=== PATIENT | female | born 1990 | race Caucasian/White ===

== ENCOUNTER → 2016-09-21 | Outpatient (CLI) | payer BC, MEDICAID ==
[~2016-09-21] MED LIST: IBUP80TA PO; PERCOCET PO; VITAPRTA PO
--- NOTE | 2016-09-21 14:11 | REP ---
OBSTETRIC SONOGRAPHY: HISTORY: Supervision of for anatomy. FINDINGS: Scanning through the gravid uterus demonstrates a viable single intrauterine gestation in a breech lie. motion is observed and heart rate is recorder 150 beats per minute. A anterior grade 0 placenta is seen without evidence of previa or abruption. Amniotic fluid is subjectively normal. Closed cervical length is 4.9 cm viewed transabdominally. No extrauterine abnormality is observed. No anomaly is seen. The following anatomic structures are less than optimally seen due to position: Face and profile, four-chamber heart and left ventricular outflow tract view, and spine. The following additional anatomic structures are identified and felt to be sonographically unremarkable: cranium, choroid plexus, cavum, cerebellum and posterior fossa, lungs, right ventricular outflow tract view, diaphragm, left-sided stomach, abdominal wall cord insertion, three-vessel umbilical cord, kidneys and bladder, upper and lower extremities. Biometry Chart: BPD 4.5 cm = 19 weeks 5 days HC 16.7 cm = 19 weeks 3 days AC 14.6 cm = 19 weeks 6 days FL 3.0 cm = 19 weeks 1 day HL 3.0 cm = 20 weeks 0 days CD 1.9 cm = 18 weeks 6 days HC/AC ratio normal 1.15. Cephalic index normal 0.75. Estimated weight 297 grams, 0 pounds 10 ounces, 40th percentile for 19 weeks 5 days. IMPRESSION: Viable single intrauterine gestation at 19 weeks 3 days by today's composite criteria. NONI by today's sonography February 12, 2017. anatomic survey less than complete as above. Signed by Rip Ramirez MD 09/21/2016 04:43 P
== END ==
LOC: M RAD 11:07
PROVIDERS: ATTEND Obstetrics & Gynecology
DX: Z34.82 Encounter for supervision of other normal pregnancy, second trimester (principal); O32.1XX0 Maternal care for breech presentation, not applicable or unspecified; Z3A.19 19 weeks gestation of pregnancy

== ENCOUNTER → 2016-10-18 | Outpatient (CLI) | payer OTHER, MEDICAID ==
--- NOTE | 2016-10-18 11:08 | REP ---
Clinical: Anatomical evaluation. Comparison: 09/21/2016 . Findings: Examination demonstrates a single live intrauterine in transverse (head to the maternal right side) presentation. motion is identified by technologist. Placenta is noted anteriorly and grade zero without evidence for placenta previa or abruption. Amniotic fluid volume is normal. Cervix measures 3.7 cm in length and appears closed. No evidence for nuchal cord. Gestational age by LMP 23 weeks 4 days with NONI 02/10/2017 . Gestational age by current measurements 23 weeks 5 days with NONI 02/09/2017 . FHR equals 144 beats per minute. Estimated weight 612 grams ( 45th percentile). Anatomical assessment demonstrates normal structures including cranium, choroid plexus, cavum, cerebellum/posterior fossa, facial features, lungs, four-chamber heart/ventricular outflow tracts, diaphragm, stomach, cord insertion/three-vessel cord, kidneys/bladder, spine, and extremities. Limited evaluation of the facial profile. Impression: 1. Single live intrauterine in transverse lie demonstrating appropriate interval growth. 2. With the exception of facial profile views, anatomical assessment is complete and normal. Signed by Pete Perez MD 10/18/2016 11:00 A
== END ==
LOC: M RAD 09:54
PROVIDERS: ATTEND Specialist
DX: Z34.82 Encounter for supervision of other normal pregnancy, second trimester (principal); Z3A.23 23 weeks gestation of pregnancy

== ENCOUNTER → 2016-11-17 | Outpatient (CLI) | payer OTHER, MEDICAID ==
[2016-11-17 15:08] LABS: MEAN CORPUSCULAR HEMOGLOBIN 30.2 pg (27.0-33.0); MEAN CORPUSCULAR HGB CONC 32.9 g/dl (32.0-36.5); MEAN CORPUSCULAR VOLUME 91.8 fl (80.0-96.0); RED CELL DISTRIBUTION WIDTH 13.6 % (11.5-14.5); WHITE BLOOD COUNT 12.3 K/mm3 (4.0-10.0)
== END ==
LOC: M LAB 13:22
PROVIDERS: ATTEND Obstetrics & Gynecology
DX: Z34.82 Encounter for supervision of other normal pregnancy, second trimester (principal)

== ENCOUNTER → 2017-01-11 | Outpatient (REF) | payer OTHER, MEDICAID | LOC: M LAB REF 17:21 | PROVIDERS: ATTEND Specialist | DX: Z34.83 Encounter for supervision of other normal pregnancy, third trimester (principal) ==

== ENCOUNTER → 2017-01-13 | Outpatient (CLI) | payer OTHER, MEDICAID ==
--- NOTE | 2017-01-14 07:41 | REP ---
Clinical: growth evaluation. Comparison: 12/22/2016 . Findings: Examination demonstrates a single live intrauterine in cephalic presentation. motion is identified by technologist. Placenta is noted anteriorly and grade one without evidence for placenta previa or abruption. Amniotic fluid volume is normal. No evidence for nuchal cord. Gestational age by LMP 36 weeks 0 days with NONI 02/10/2017 . Gestational age by current measurements 48-lllq-9-day with NONI 02/28/2017 . FHR equals 145 beats per minute. BPD 8.8 cm 35 weeks 5 days HC 31.9 cm 35 weeks 6 days AC 32.0 cm 35 weeks 6 days FL 7.1 cm 36 weeks 2 days HL 6.3 cm 36 weeks 2 days HC/AC ratio 1.00 Estimated weight 2815 grams ( 50th percentile). Amniotic fluid index equals 13.0 cm (7.7 - 24.9). Impression: Single live advanced gestation in cephalic presentation demonstrating appropriate interval growth. Estimated weight and amniotic fluid volume are normal. Signed by Pete Perez MD 01/14/2017 07:33 A
== END ==
LOC: M RAD 14:24
PROVIDERS: ATTEND Specialist
DX: O36.63X2 Maternal care for excessive fetal growth, third trimester, fetus 2 (principal); Z3A.36 36 weeks gestation of pregnancy

== ENCOUNTER 2017-02-03 05:39 | Inpatient (IN) | payer OTHER, MEDICAID ==
[~2017-02-03] VITALS: Ht 182.9 cm; Wt 130.0 kg
[2017-02-03] VITALS (8 sets, daily range): BP systolic 110–135; BP diastolic 61–83
[~2017-02-03 05:39] MED LIST changes: +PRENTAB9 PO
[2017-02-03 06:38] LABS: MEAN CORPUSCULAR HEMOGLOBIN 30.7 pg (27.0-33.0); MEAN CORPUSCULAR HGB CONC 34.5 g/dl (32.0-36.5); MEAN CORPUSCULAR VOLUME 89.1 fl (80.0-96.0); RED CELL DISTRIBUTION WIDTH 14.1 % (11.5-14.5)
[2017-02-03] MEDS ORDERED: LR 1,000 ML IV ONE (06:45)
[2017-02-03] MEDS ORDERED: LR 1,000 ML IV SCH (06:45)
[2017-02-03] MEDS ORDERED: BICITRA 30ML SOLN UDC PO ONE (06:45)
[2017-02-03] MEDS ORDERED: ONDANSETRON 4MG/2ML VIAL (J2405) IV PRN ×3 (08:09→10:00)
[2017-02-03] MEDS ORDERED: NALBUPHINE HCL 10 MG/ML AMP (J2300) IV PRN ×2 (08:09→10:00)
[2017-02-03] MEDS ORDERED: NALOXONE INJ 0.4 MG/1 ML VIAL (J2310) IV PRN ×2 (08:09)
[2017-02-03] MEDS ORDERED: METOCLOPRAMIDE INJ 10MG/2ML VIAL (J2765) IV PRN (08:09)
[2017-02-03] MEDS ORDERED: ePHEDrine SULFATE 25 MG/5 ML(5MG/ML) SYRINGE As Ordered ONE ×2 (08:18→08:37)
[2017-02-03] MEDS ORDERED: OXYTOCIN INJ 10 UNITS/ML VIAL (J2590) As Ordered ONE (08:18)
[2017-02-03] MEDS ORDERED: MORPHINE PRES-FREE INJ 10 MG/10 ML VIAL (J2274) As Ordered ONE (08:18)
[2017-02-03] MEDS ORDERED: PHENYLephrine HCL 500 MCG/5 ML (100MCG/ML) SYRINGE (J2370) As Ordered ONE ×2 (08:18→08:37)
[2017-02-03] MEDS ORDERED: ONDANSETRON 4MG/2ML VIAL (J2405) As Ordered ONE (08:22)
[2017-02-03] MEDS ORDERED: KETOROLAC 60 MG/2 ML VIAL (J1885) As Ordered ONE (08:22)
[2017-02-03] MEDS: LR 1,000 ML IV SCH ×2 (09:37→17:37)
[2017-02-03] MEDS: OXYTOCIN DRIP 30 UNITS in APPROPRIATE DILUENT 1 EA IV SCH ×4 (09:37→21:37)
[2017-02-03] MEDS ORDERED: MEASLES,MUMPS,RUBELLA VACCINE INJ (MMR-II) (90707) SC SCH (09:45)
[2017-02-03] MEDS ORDERED: PROMETHAZINE 25 MG TAB PO PRN (09:45)
[2017-02-03] MEDS ORDERED: RHOGAM 300 MCG (1500 IU) INJ (J2790) IM SCH (09:45)
[2017-02-03] MEDS ORDERED: OXYC1TAB23 PO (09:49)
[2017-02-03] MEDS ORDERED: IBUP-1022 PO (09:50)
[2017-02-03] MEDS ORDERED: COLA100C5 PO (09:51)
[2017-02-03] MEDS ORDERED: MEPERIDINE INJ 25 MG/ML VIAL (J2175) IV PRN (10:00)
[2017-02-03] MEDS ORDERED: PERCOCET 5MG/325MG TAB PO PRN (10:00)
[2017-02-03] MEDS ORDERED: fentaNYL 100 MCG/2 ML INJECTION (J3010) IV PRN (10:00)
[2017-02-03] MEDS ORDERED: HYDROmorphone HCL 1 MG/ML SYRINGE (J1170) IV PRN (10:00)
[2017-02-03] MEDS: PERCOCET 5MG/325MG TAB PO PRN ×2 (12:09→17:58)
[2017-02-03] MEDS: KETOROLAC 30 MG/ML VIAL (J1885) IV SCH ×2 (15:17→21:01)
[2017-02-03] MEDS: DOCUSATE SODIUM 100 MG CAP PO SCH (21:00)
[2017-02-03] MEDS ORDERED: LACTATED RINGER'S 1000 ML IV ONE (22:15)
[2017-02-03] MEDS: SIMETHICONE 80 MG CHEW TAB PO PRN (22:46)
[2017-02-04] MEDS: PERCOCET 5MG/325MG TAB PO PRN ×4 (01:30→20:28)
[2017-02-04] MEDS: LR 1,000 ML IV SCH (01:37)
[2017-02-04] MEDS: OXYTOCIN DRIP 30 UNITS in APPROPRIATE DILUENT 1 EA IV SCH ×2 (01:37→05:37)
[2017-02-04 02:09] VITALS: BP 132/72
[2017-02-04] MEDS: KETOROLAC 30 MG/ML VIAL (J1885) IV SCH ×2 (03:23→08:42)
[2017-02-04 05:44] VITALS: BP 135/70
[2017-02-04] MEDS: SIMETHICONE 80 MG CHEW TAB PO PRN ×2 (06:44→20:41)
[2017-02-04 07:12] LABS: MEAN CORPUSCULAR HGB CONC 33.1 g/dl (32.0-36.5); MEAN CORPUSCULAR VOLUME 90.4 fl (80.0-96.0); RED CELL DISTRIBUTION WIDTH 14.6 % (11.5-14.5)
[2017-02-04] MEDS: PRENATAL VITAMINS CHEWABLE TABLET PO SCH (08:42)
[2017-02-04] MEDS: DOCUSATE SODIUM 100 MG CAP PO SCH ×2 (08:42→20:28)
[2017-02-04 10:35] VITALS: BP 111/55
[2017-02-04 14:45] VITALS: BP 119/64
[2017-02-04] MEDS: IBUPROFEN 800 MG TAB PO SCH (17:06)
[2017-02-04 18:25] VITALS: BP_SYST 127; BP_SYST 131; BP_DIAS 61; BP_DIAS 62
[2017-02-05] MEDS: PERCOCET 5MG/325MG TAB PO PRN ×3 (00:45→12:14)
[2017-02-05] MEDS: IBUPROFEN 800 MG TAB PO SCH ×2 (00:45→09:44)
[2017-02-05 05:35] VITALS: BP 127/71
[2017-02-05] MEDS: PRENATAL VITAMINS CHEWABLE TABLET PO SCH (09:44)
[2017-02-05] MEDS: DOCUSATE SODIUM 100 MG CAP PO SCH (09:44)
[2017-02-05] MEDS ORDERED: OXYC1TAB23 PO (11:13)
[2017-02-05] MEDS ORDERED: IBUP-1114 PO (11:13)
[2017-02-05] MEDS ORDERED: MYLI40DR PO (11:13)
== END 2017-02-05 12:30 | disposition home or self-care (01) | DRG 766 ==
LOC: M LDI 05:39 → M OBS 11:41
PROVIDERS: ADMIT Specialist; ATTEND Obstetrics & Gynecology
PROC: 10D00Z1 Extraction of Products of Conception, Low, Open Approach (ICD-10-PCS; principal; 2017-02-03 07:30)
DX: O34.211 Maternal care for low transverse scar from previous cesarean delivery (principal); O99.824 Streptococcus B carrier state complicating childbirth; Z3A.39 39 weeks gestation of pregnancy; O99.02 Anemia complicating childbirth; D64.9 Anemia, unspecified; Z37.0 Single live birth

== ENCOUNTER → 2019-04-23 | Outpatient (CLI) | payer BC, MEDICAID, OTHER ==
[~2019-04-23] MED LIST changes: +COLA100C5 PO; +IBUP-1022 PO; +IBUP-1114 PO; +MYLI40DR PO; +OXYC1TAB23 PO
--- NOTE | 2019-04-23 20:25 | REP ---
Obstetric ultrasound for anatomy: There is a single intrauterine gestation in a vertex presentation. There is movement and cardiac activity. The heart rate is 139 beats per minute. The placenta is posterior. There is no previa or abruptio. The placenta is grade zero. The amniotic fluid volume subjectively is normal. The cervix measures 4.2 cm length. Gestational age by today's ultrasound is 19 weeks 1 day/NONI 09/16/2019. Gestational age by LMP is 19 weeks 3 days/NONI 09/14/2019. weight is 279 grams/0 pounds, 9 ounces. This is the 39th percentile for 19 weeks 3 days. anatomy: The following anatomic structures are identified and are unremarkable: Cranium, choroid plexus, diaphragm, stomach, kidneys, bladder, spine, upper and lower extremities. Suboptimally demonstrated because of position are: Cavum septum pellucidum, cerebellum, facial features, lungs, four-chamber heart, cardiac right and left ventricular outflow tracts, cord insertion and three-vessel cord. A followup study dedicated to these structures might be considered. Electronically Signed by Apollo Ascencio MD 04/23/2019 08:16 P
== END ==
LOC: M RAD 18:07
PROVIDERS: ATTEND Obstetrics & Gynecology
DX: Z34.82 Encounter for supervision of other normal pregnancy, second trimester (principal); Z3A.19 19 weeks gestation of pregnancy

== ENCOUNTER → 2019-05-18 | Outpatient (CLI) | payer BC ==
--- NOTE | 2019-05-18 15:21 | REP ---
REASON: Followup anatomy. Prior examination suboptimally visualized four chamber heart and ventricular outflow tracts. Multiple ultrasonographic images of the gravid uterus shows a single living intrauterine gestation in the jones breech presentation. The fetus is slightly oblique, however, with a head to the maternal left position. Doppler interrogation of the heart shows a heart rate of 144 beats per minute. The placenta is posterior and overlying. The subjective amniotic fluid volume is within normal limits. The cervix measures 5 cm in length and is closed. anatomical features seen today as unremarkable are as follows: Thalami, cavum septum pellucidum, cerebellum, cisterna magna, cerebral ventricles, spine, kidneys, bladder, three vessel umbilical cord, cord insertion, stomach, and upper and lower extremities. Four chamber heart and ventricular outflow tracts again suboptimally seen today. upper lip was seen normally today. BPD 5.5 cm = 22 weeks 4 days HC 20.5 cm = 22 weeks 4 days AC 20.0 cm = 24 weeks 5 days FL 4.2 cm = 23 weeks 6 days The estimated weight is 653 grams which is at the 78th percentile for 23 weeks 0 day gestational age. IMPRESSION: Single living intrauterine gestation as described above with an estimated gestational age of 23 weeks 2 days via composite criteria and an estimated date of delivery 09/12/2019. No anomalies were seen today, however, I recommended a followup examination to confirm a four vessel heart and to better visualize the outflow tracts. Electronically Signed by Cruz Chung DO 05/18/2019 04:23 P
== END ==
LOC: M RAD 07:04
PROVIDERS: ATTEND Obstetrics & Gynecology
DX: Z34.82 Encounter for supervision of other normal pregnancy, second trimester (principal); Z3A.23 23 weeks gestation of pregnancy

== ENCOUNTER → 2019-06-08 | Outpatient (CLI) | payer BC ==
--- NOTE | 2019-06-08 19:10 | REP ---
Obstetric sonography: History: Supervision of followup anatomy and placental location. Findings: Scanning through the gravid uterus demonstrates a viable single intrauterine gestation in a cephalic lie. motion is observed. Heart rate is recorded at 124 beats per minute. A posterior grade zero placenta is seen without evidence of previa. The placental tip is 6.3 cm from the internal cervical os. Closed cervical length is measured transvaginally and transabdominally at 5.5 cm. No extrauterine abnormalities observed. There has been appropriate interval growth. No anomaly is seen. The following anatomic structures are identified today and felt to be sonographically unremarkable: cranium, cavum, face and profile, lungs, four-chamber heart with left and right ventricular outflow tract views, diaphragm, left-sided stomach, abdominal wall cord insertion, three-vessel cord, kidneys and bladder. Biometry chart: BPD 6.7 cm 26 weeks 6 days head circumference 23.7 cm 25 weeks 5 days abdominal circumference 22.1 cm 26 weeks 4 days femur length 5.0 cm 26 weeks 6 days humeral length 4.3 cm 26 weeks 0 days HC/AC ratio normal 1.07, cephalic index normal 0.80, estimated weight 958 grams, 2 pounds 1 ounce, 59th percentile for 26 weeks 0 days. Impression: Viable single intrauterine gestation 26 weeks 3 days by today's composite sonographic criteria. Expected gestational age estimate based on prior sonography is 25 weeks 5 days. NONI by prior sonography September 16, 2019. Electronically Signed by Rip Ramirez MD 06/08/2019 07:11 P
== END ==
LOC: M RAD 16:48
PROVIDERS: ATTEND Obstetrics & Gynecology
DX: Z34.82 Encounter for supervision of other normal pregnancy, second trimester (principal); Z3A.26 26 weeks gestation of pregnancy

== ENCOUNTER → 2019-06-16 | Outpatient (CLI) | payer BC ==
[2019-06-16 10:01] LABS: HEMATOCRIT 36.3 % (36.0-47.0); HEMOGLOBIN 11.7 g/dl (12.0-15.5); MEAN CORPUSCULAR HEMOGLOBIN 29.8 pg (27.0-33.0); MEAN CORPUSCULAR HGB CONC 32.2 g/dl (32.0-36.5); MEAN CORPUSCULAR VOLUME 92.6 fl (80.0-96.0); PLATELET COUNT, AUTOMATED 213 10^3/uL (150-450); RED BLOOD COUNT 3.92 10^6/uL (4.00-5.40); WHITE BLOOD COUNT 12.5 10^3/uL (4.0-10.0)
== END ==
LOC: M LAB 08:24
PROVIDERS: ATTEND Obstetrics & Gynecology
DX: Z34.82 Encounter for supervision of other normal pregnancy, second trimester (principal)

== ENCOUNTER → 2019-06-25 | Outpatient (REF) | payer BC ==
[2019-06-25 13:34] LABS: APPEARANCE, URINE CLOUDY (CLEAR); BACTERIA, URINE AUTO 1+ (NEGATIVE); BILIRUBIN, URINE AUTO NEGATIVE (NEGATIVE); BLOOD, URINE BLOOD 3+ (NEGATIVE); COLOR, URINE YELLOW (YELLOW); GLUCOSE, URINE (UA) AUTO 1+ mg/dL (NEGATIVE); KETONE, URINE AUTO NEGATIVE (NEGATIVE); LEUKOCYTE ESTERASE, URINE AUTO 3+ (NEGATIVE); MUCUS, URINE SMALL (NEGATIVE); NITRITE, URINE AUTO NEGATIVE (NEGATIVE); PROTEIN, URINE AUTO NEGATIVE (NEGATIVE); RBC, URINE AUTO 91 /HPF (0-3); SPECIFIC GRAVITY URINE AUTO 1.016 (1.002-1.035); SQUAMOUS EPITHELIAL CELL UR AU 4 /HPF (0-6); UROBILINOGEN, URINE AUTO 0.2 mg/dL (0.0-2.0); WBC, URINE AUTO TNTC /HPF (0-3)
== END ==
LOC: M SFHCPLAZ 13:15
PROVIDERS: ATTEND Obstetrics & Gynecology
DX: R30.0 Dysuria (principal)

== ENCOUNTER → 2019-08-17 | Outpatient (CLI) | payer BC ==
--- NOTE | 2019-08-17 10:12 | REP ---
Obstetric sonography: History: Supervision of growth study. Findings: Scanning through the gravid uterus demonstrates a viable single intrauterine gestation in a cephalic lie. motion is observed and heart rate is recorded at 162 beats per minute. A posterior fundal grade 1 to 2 placenta is seen without evidence of previa or abruption. Amniotic fluid is subjectively normal. No extrauterine abnormalities observed. There has been appropriate interval growth. The following anatomic structures are again identified and felt to be unremarkable: cranium, face and profile, lungs, four-chamber heart, left-sided stomach, kidneys and bladder. Biometry chart: BPD 9.0 cm 36 weeks 4 days Head circumference 32.7 cm 37 weeks 1 day Abdominal circumference 33.7 cm 37 weeks 4 days Femur length 7.3 cm 37 weeks 1 day Humeral length 6.4 cm 37 weeks 2 days HC/AC ratio normal 1.0, cephalic index normal 0.8, estimated weight 3176 grams, 7 pounds 0 ounces, 74th percentile for 36 weeks 0 days, MILLY 19.5 cm SD ratio normal 2.52. Impression: Viable single intrauterine gestation at 37 weeks 1 day by today's composite criteria. Expected gestational age estimate based on prior sonography is 35 weeks 5 days. NONI by prior sonography September 16, 2019. Electronically Signed by Rip Ramirez MD 08/17/2019 06:34 P
== END ==
LOC: M RAD 08:29
PROVIDERS: ATTEND Advanced Practice Midwife
DX: Z36.2 Encounter for other antenatal screening follow-up (principal); O26.849 Uterine size-date discrepancy, unspecified trimester; Z3A.37 37 weeks gestation of pregnancy

== ENCOUNTER → 2019-08-17 | Outpatient (REF) | payer BC | LOC: M SFHCWAGY 13:27 | PROVIDERS: ATTEND Advanced Practice Midwife | DX: Z36.85 Encounter for antenatal screening for Streptococcus B (principal); O34.211 Maternal care for low transverse scar from previous cesarean delivery ==

== ENCOUNTER 2019-08-31 11:08 | Outpatient (CLI) | payer BC ==
[~2019-08-31] VITALS: Ht 182.9 cm; Wt 147.2 kg
[2019-08-31 11:21] VITALS: BP 122/67
[2019-08-31 11:30] VITALS: BP 146/78
[2019-08-31] MEDS ORDERED: TUMS500C PO (11:39)
[2019-08-31 11:42] VITALS: BP 136/84
[2019-08-31 11:55] LABS: HEMATOCRIT 35.5 % (36.0-47.0); HEMOGLOBIN 11.7 g/dl (12.0-15.5); MEAN CORPUSCULAR HEMOGLOBIN 29.3 pg (27.0-33.0); PLATELET COUNT, AUTOMATED 217 10^3/uL (150-450); RED BLOOD COUNT 3.99 10^6/uL (4.00-5.40); WHITE BLOOD COUNT 13.4 10^3/uL (4.0-10.0)
[2019-08-31 12:16] LABS: CREATININE,RANDOM URINE 48.4 MG/DL; TOTAL PROTEIN,RANDOM URINE 5.4 MG/DL (0.0-12.0)
[2019-08-31 12:30] LABS: ALT/SGPT 12 U/L (12-78); BILIRUBIN,TOTAL 0.3 MG/DL (0.2-1.0); CREATININE FOR GFR 0.63 MG/DL (0.55-1.30); GLOMERULAR FILTRATION RATE > 60.0 (>60); LDH LACTATE DEHYDROGENASE 136 U/L (84-246); URIC ACID 2.8 MG/DL (2.6-6.0)
--- NOTE | 2019-08-31 13:49 | IPNPDOC ---
Text Note Date of Service The patient was seen on 08/31/19. NOTE Outpatient 29yo NONI 09/14/2019. Presents @ 38wks from home with complaints of lower extremity edema, headache and elevated blood pressures at work. Denies regular UC, LOF or bleeding. Reports good movement. Normotensive NAD. Reports headache is mild, frontal and intermittent Cat I tracing, no UC Bilateral nonpitting lower extremity edema Preeclamptic panel WNL. Protein/creatinine ratio 0.11 Discharged home with instructions. Will call if blood pressures are consistently elevated, severe headache, visual disturbances or decreased movement. Keep appt Tuesday. VS,Fishbone, I+O VS, Fishbone, I+O Laboratory Tests 08/31/19 11:35 Vital Signs Date Time Temp Pulse Resp B/P (MAP) Pulse Ox O2 Delivery O2 Flow Rate FiO2 08/31/19 11:53 98.0 18 08/31/19 11:42 100 136/84 (101) Valerie Maguire CNM Aug 31, 2019 13:48
== END 2019-08-31 13:10 | disposition home or self-care (01) ==
LOC: M LDO 11:08
PROVIDERS: ATTEND Advanced Practice Midwife
DX: O12.03 Gestational edema, third trimester (principal); O26.893 Other specified pregnancy related conditions, third trimester; R51 Headache; Z3A.38 38 weeks gestation of pregnancy
CPT/HCPCS: 36415; 59025; 82247; 82565; 82570; 83615; 84156; 84450; 84460; 84550; 85027; 87641; G0378; G0463

== ENCOUNTER 2019-09-13 05:43 | Inpatient (IN) | payer BC ==
[2019-09-13] VITALS (26 sets, daily range): BP systolic 79–118; BP diastolic 51–66
[~2019-09-13] VITALS: Ht 182.9 cm; Wt 149.0 kg
[~2019-09-13 05:43] MED LIST changes: +TUMS500C PO
[2019-09-13] MEDS ORDERED: ceFAZolin SOD 1 GM in D5W MINI-BAG PLUS 50 ML IV ONE (06:00)
[2019-09-13] MEDS ORDERED: ceFAZolin SOD 2 GM in IV 1 EA IV ONE (06:00)
[2019-09-13] MEDS ORDERED: LR 1,000 ML IV ONE ×2 (06:00→17:00)
[2019-09-13] MEDS ORDERED: BICITRA 30ML SOLN UDC PO ONE (06:00)
[2019-09-13 06:28] LABS: HEMATOCRIT 33.6 % (36.0-47.0); HEMOGLOBIN 11.2 g/dl (12.0-15.5); MEAN CORPUSCULAR HEMOGLOBIN 29.6 pg (27.0-33.0); MEAN CORPUSCULAR HGB CONC 33.3 g/dl (32.0-36.5); MEAN CORPUSCULAR VOLUME 88.7 fl (80.0-96.0); PLATELET COUNT, AUTOMATED 197 10^3/uL (150-450); RED BLOOD COUNT 3.79 10^6/uL (4.00-5.40); WHITE BLOOD COUNT 11.7 10^3/uL (4.0-10.0)
[2019-09-13] MEDS ORDERED: LR 1,000 ML IV SCH ×2 (07:00→09:30)
[2019-09-13] MEDS ORDERED: ONDANSETRON 4MG/2ML VIAL (J2405) As Ordered ONE ×2 (07:46→11:07)
[2019-09-13] MEDS ORDERED: KETOROLAC 60 MG/2 ML VIAL (J1885) As Ordered ONE (07:46)
[2019-09-13] MEDS ORDERED: MORPHINE PRES-FREE INJ 10 MG/10 ML VIAL (J2274) As Ordered ONE (07:46)
[2019-09-13] MEDS ORDERED: OXYTOCIN INJ 10 UNITS/ML VIAL (J2590) As Ordered ONE (07:46)
[2019-09-13] MEDS ORDERED: METOCLOPRAMIDE INJ 10MG/2ML VIAL (J2765) IV PRN ×2 (07:57→09:30)
[2019-09-13] MEDS ORDERED: NALBUPHINE HCL 10 MG/ML AMP (J2300) IV PRN (07:57)
[2019-09-13] MEDS ORDERED: ONDANSETRON 4MG/2ML VIAL (J2405) IV PRN ×2 (07:57→09:30)
[2019-09-13] MEDS ORDERED: diphenhydrAMINE INJ 50MG/ML VIAL (J1200) IV PRN (07:57)
[2019-09-13] MEDS ORDERED: NALOXONE INJ 0.4 MG/1 ML VIAL (J2310) IV PRN ×2 (07:57)
[2019-09-13] MEDS ORDERED: ePHEDrine SULFATE 25 MG/5 ML(5MG/ML) SYRINGE As Ordered ONE ×2 (08:01→09:06)
[2019-09-13] MEDS ORDERED: PHENYLephrine HCL 500 MCG/5 ML (100MCG/ML) SYRINGE (J2370) As Ordered ONE (08:05)
[2019-09-13] MEDS: DOCUSATE SODIUM 100 MG CAP PO SCH ×2 (09:00→20:41)
[2019-09-13] MEDS ORDERED: OXYTOCIN DRIP 30 UNITS in IV 1 EA IV SCH (09:05)
[2019-09-13] MEDS ORDERED: MEASLES,MUMPS,RUBELLA VACCINE INJ (MMR-II) (90707) SC SCH (09:15)
[2019-09-13] MEDS ORDERED: PERCOCET 5MG/325MG TAB PO PRN ×2 (09:15→09:30)
[2019-09-13] MEDS ORDERED: ACETAMINOPHEN 500 MG TAB PO PRN (09:15)
[2019-09-13] MEDS ORDERED: RHOGAM 300 MCG (1500 IU) INJ (J2790) IM SCH (09:15)
[2019-09-13] MEDS ORDERED: fentaNYL 100 MCG/2 ML INJECTION (J3010) IV PRN (09:30)
[2019-09-13] MEDS ORDERED: OXYTOCIN 30 UNITS IN 0.9% NaCl 500ML IV BAG (J2590) As Ordered ONE (10:27)
[2019-09-13] MEDS: ePHEDrine SULFATE 25 MG/5 ML(5MG/ML) SYRINGE IV SCH ×6 (10:31→10:45)
[2019-09-13] MEDS: LR 1,000 ML IV SCH ×2 (12:02→18:00)
[2019-09-13] MEDS ORDERED: PROMETHAZINE INJ 25 MG/ML VIAL (J2550) IM ONE (13:30)
[2019-09-13] MEDS: KETOROLAC 30 MG/ML VIAL (J1885) IV SCH ×2 (16:16→20:42)
[2019-09-14] MEDS: LR 1,000 ML IV SCH (01:15)
[2019-09-14 02:00] VITALS: BP 109/53
[2019-09-14] MEDS: KETOROLAC 30 MG/ML VIAL (J1885) IV SCH (03:38)
[2019-09-14] MEDS ORDERED: PERCOCET PO (05:10)
[2019-09-14] MEDS ORDERED: IBUP80TA PO (05:10)
[2019-09-14] MEDS ORDERED: DOCU100C16 PO (05:10)
[2019-09-14 06:00] VITALS: BP 109/65
[2019-09-14 08:09] LABS: HEMATOCRIT 26.9 % (36.0-47.0); MEAN CORPUSCULAR HEMOGLOBIN 29.9 pg (27.0-33.0); MEAN CORPUSCULAR HGB CONC 32.7 g/dl (32.0-36.5); MEAN CORPUSCULAR VOLUME 91.5 fl (80.0-96.0); PLATELET COUNT, AUTOMATED 142 10^3/uL (150-450); RED BLOOD COUNT 2.94 10^6/uL (4.00-5.40); WHITE BLOOD COUNT 10.4 10^3/uL (4.0-10.0)
[2019-09-14 08:15] LABS: HEMOGLOBIN 8.8 g/dl (12.0-15.5)
[2019-09-14] MEDS: DOCUSATE SODIUM 100 MG CAP PO SCH ×2 (08:21→21:30)
[2019-09-14] MEDS: PERCOCET 5MG/325MG TAB PO PRN ×2 (08:22→19:54)
[2019-09-14] MEDS: PRENATAL VITAMINS CHEWABLE TABLET PO SCH (08:22)
[2019-09-14] MEDS ORDERED: SLF 3 ML SYR IV PRN (10:30)
[2019-09-14 10:47] VITALS: BP 124/65
[2019-09-14] MEDS: IBUPROFEN 800 MG TAB PO SCH ×2 (11:03→18:40)
[2019-09-14 14:25] VITALS: BP 118/59
[2019-09-14] MEDS: SLF 3 ML SYR IV SCH ×2 (14:43→22:00)
[2019-09-14 18:16] VITALS: BP 137/87
[2019-09-14 22:00] VITALS: BP 129/61
[2019-09-15] MEDS: IBUPROFEN 800 MG TAB PO SCH ×2 (01:58→11:42)
[2019-09-15 02:00] VITALS: BP 120/61
[2019-09-15] MEDS: PERCOCET 5MG/325MG TAB PO PRN (05:57)
[2019-09-15 06:00] VITALS: BP 144/77
--- NOTE | 2019-09-15 07:57 | DS.PDOC ---
Discharge Summary General Date of Admission Sep 13, 2019 at 05:43 Date of Discharge Sep 15, 2019 Discharge Summary PROCEDURES PERFORMED DURING STAY: Repeat section. ADMITTING DIAGNOSES: 1. Previous x2 at term for repeat section. DISCHARGE DIAGNOSES: 1. Repeat section. COMPLICATIONS/CHIEF COMPLAINT: Previous Section. HISTORY OF PRESENT ILLNESS: 29yo admitted on 09/13/19 for repeat section at 39+ gestation.Repeat performed by Dr Pantoja [facility] COURSE: Tolerating regular diet. Ambulating. Voiding and passing flatus. Adequate pain management. DISCHARGE MEDICATIONS: Please see below. ALLERGIES: Please see below. PHYSICAL EXAMINATION ON DISCHARGE: VITAL SIGNS: Please see below. GENERAL: Awake alert HEENT: WNL NECK: Supple CARDIOVASCULAR EXAMINATION: HRR, normotensive RESPIRATORY EXAMINATION: Clear, unlabored ABDOMINAL EXAMINATION: Fundus firm, nontender. Dressing intact EXTREMITIES: Equal strength and motion.Moderate edema SKIN: Intact NEUROLOGICAL EXAMINATION: Grossly intact PSYCHIATRIC EXAMINATION: Appropriate LABORATORY DATA: Please see below. PROGNOSIS: Good ACTIVITY: As tolerated. DIET: As tolerated DISCHARGE PLAN: Home today, routine precautions. Remove dressing on day 5. RTO 2wks and 6 wks DISPOSITION: Home DISCHARGE INSTRUCTIONS: 1. Pelvic rest. Ibuprofen and percocet as ordered. Remove dressing day 5. Call with fever, nausea, vomiting, foul lochia or wound exudate. RTO 2wks and 6 wks DISCHARGE CONDITION: Stable. Vital Signs/I&Os Vital Signs Date Time Temp Pulse Resp B/P (MAP) Pulse Ox O2 Delivery O2 Flow Rate FiO2 09/15/19 06:00 98.6 72 20 144/77 (99) 100 Room Air Laboratory Data Labs 24H Laboratory Tests 2 09/14/19 07:26: Nucleated Red Blood Cells % (auto) 0.0 CBC/BMP Laboratory Tests 09/14/19 07:26 Discharge Medications Scheduled Calcium Carbonate (Tums) 200 Mg Tab.chew, 2 TAB PO Q4H for cough and congestion, (Reported) Docusate Sodium (Docusate Sodium) 100 Mg Capsule, 100 MG PO BID Ibuprofen (Ibuprofen) 800 Mg Tablet, 800 MG PO Q8H No.137/Iron/Folic Acd ( Vitamin Tablet) 1 Tab Tab, 1 TAB PO QAM, (Reported) Scheduled PRN Oxycodone/Acetaminophen (Oxycodone-Acetaminophen 5-325) 1 Each Tablet, 1 TAB PO Q4H PRN for MILD/MODERATE PAIN (PS 1-7) Allergies Coded Allergies: morphine (Verified Adverse Reaction, Unknown, B/P DROP, 08/30/19) Valerie Maguire CNM Sep 15, 2019 07:57
[2019-09-15] MEDS: PRENATAL VITAMINS CHEWABLE TABLET PO SCH (08:15)
[2019-09-15] MEDS: DOCUSATE SODIUM 100 MG CAP PO SCH (08:15)
[2019-09-15] MEDS ORDERED: IBUP80TA PO (13:03)
[2019-09-15] MEDS ORDERED: OXYC1TAB23 PO (13:05)
== END 2019-09-15 12:35 | disposition home or self-care (01) | DRG 540 ==
LOC: M LDI 05:43 → M OBS 12:00
PROVIDERS: ADMIT Obstetrics & Gynecology; ATTEND Obstetrics & Gynecology
PROC: 10D00Z1 Extraction of Products of Conception, Low, Open Approach (ICD-10-PCS; principal; 2019-09-13 07:30)
DX: O34.211 Maternal care for low transverse scar from previous cesarean delivery (principal); Z37.0 Single live birth; Z3A.39 39 weeks gestation of pregnancy

== ENCOUNTER → 2019-12-12 | Outpatient (REF) | payer BC ==
[~2019-12-12] MED LIST changes: +DOCU100C16 PO
== END ==
LOC: M SFHCWAGY 17:29
PROVIDERS: ATTEND Obstetrics & Gynecology
DX: Z01.419 Encounter for gynecological examination (general) (routine) without abnormal findings (principal); Z12.4 Encounter for screening for malignant neoplasm of cervix
CPT/HCPCS: 87624; G0123

== ENCOUNTER → 2020-04-01 | Outpatient (REF) | payer BC | LOC: M SFHCWAGY 14:30 | PROVIDERS: ATTEND Obstetrics & Gynecology | DX: N87.9 Dysplasia of cervix uteri, unspecified (principal) ==

== ENCOUNTER → 2021-01-10 | Outpatient (REF) | LOC: M LABSMTC 08:16 | PROVIDERS: ATTEND Pediatrics | DX: Z20.822 Contact with and (suspected) exposure to COVID-19 (principal) ==

== ENCOUNTER → 2021-08-05 | Outpatient (REF) | LOC: M LABSMTC 11:01 | PROVIDERS: ATTEND Pediatrics | DX: Z11.52 Encounter for screening for COVID-19 (principal); Z20.822 Contact with and (suspected) exposure to COVID-19 ==

== ENCOUNTER → 2021-10-07 | Outpatient (REF) | payer BC | LOC: M PLALAB 15:22 | PROVIDERS: ATTEND Advanced Practice Midwife | DX: B37.3 Candidiasis of vulva and vagina (principal); Z12.4 Encounter for screening for malignant neoplasm of cervix | CPT/HCPCS: 87624; G0123 ==

== ENCOUNTER → 2022-01-27 | Outpatient (REF) | payer BC ==
[2022-01-28 10:42] LABS: APPEARANCE, URINE MANUAL HAZY (CLEAR); BILIRUBIN, URINE MANUAL NEGATIVE (NEGATIVE); BLOOD URINE MANUAL POSITIVE (NEGATIVE); COLOR, URINE MANUAL YELLOW (YELLOW); GLUCOSE, URINE (UA) MANUAL NEGATIVE (NEGATIVE); KETONE, URINE MANUAL NEGATIVE (NEGATIVE); LEUKOCYTE ESTERASE, URINE MAN POSITIVE (NEGATIVE); NITRITE, URINE MANUAL NEGATIVE (NEGATIVE); PROTEIN, URINE MANUAL TRACE mg/dL (NEGATIVE); SPECIFIC GRAVITY,URINE MANUAL 1.025 (1.002-1.035); UROBILINOGEN, URINE MANUAL NORMAL (NORMAL)
[2022-01-28 10:44] LABS: BACTERIA, URINE SMALL AMOUNT; MUCUS, URINE SMALL AMOUNT (NEGATIVE); SQUAMOUS EPITHELIAL CELL URINE SMALL AMOUNT /hpf (SMALL AMT)
[2022-01-28 10:46] LABS: HYALINE CAST, URINE 0-1 /lpf (0-1)
== END ==
LOC: M SFHCWAGY 10:16
PROVIDERS: ATTEND Obstetrics & Gynecology
DX: N39.0 Urinary tract infection, site not specified (principal)

== ENCOUNTER → 2022-02-04 | Outpatient (CLI) | payer BC | LOC: M WHC 09:37 | DX: K42.9 Umbilical hernia without obstruction or gangrene (principal); R10.10 Upper abdominal pain, unspecified ==

== ENCOUNTER → 2022-04-18 | Outpatient (CLI) | payer BC ==
[~2022-04-18] MED LIST changes: +AMPH1CAP5 PO; +AMPHETAMINE PO; +DEXTROAMPHETAMINE PO
== END ==
LOC: M LABSMTC 10:01
PROVIDERS: ATTEND Anesthesiology
DX: Z01.812 Encounter for preprocedural laboratory examination (principal); Z11.52 Encounter for screening for COVID-19

== ENCOUNTER 2022-04-23 07:55 | Day surgery (SDC) | payer BC ==
[~2022-04-23] VITALS: Ht 180.3 cm; Wt 129.6 kg
[2022-04-23] MEDS ORDERED: LR 1,000 ML IV SCH ×2 (08:15→12:40)
[2022-04-23] MEDS ORDERED: ceFAZolin SOD 2 GM in IV 1 EA IV ONE (09:00)
[2022-04-23] MEDS ORDERED: ceFAZolin SOD 1 GM in D5W MINI-BAG PLUS 50 ML IV ONE (09:00)
[2022-04-23] MEDS ORDERED: LIDOCAINE 2% 100MG/5ML SDV (FOR ANES.) As Ordered ONE (09:40)
[2022-04-23] MEDS ORDERED: MIDAZOLAM INJ 2MG/2ML VIAL (J2250 PER 1MG) As Ordered ONE (09:40)
[2022-04-23] MEDS ORDERED: propofoL 200 MG/20 ML VIAL As Ordered ONE (09:40)
[2022-04-23] MEDS ORDERED: dexameTHASONE 4 MG/ML 1ML VIAL (J1100 PER 1MG) As Ordered ONE (09:40)
[2022-04-23] MEDS ORDERED: fentaNYL 100 MCG/2 ML INJECTION As Ordered ONE ×3 (09:40→12:40)
[2022-04-23] MEDS ORDERED: ONDANSETRON 4MG 2ML VIAL As Ordered ONE (09:40)
[2022-04-23] MEDS ORDERED: ROCURONIUM BROMIDE 50 MG/5 ML VIAL As Ordered ONE (09:40)
[2022-04-23] MEDS ORDERED: BUPIVACAINE/EPIN 0.25% 30 ML VIAL As Ordered ONE (10:21)
[2022-04-23] MEDS ORDERED: ACETAMINOPHEN 1000MG 100ML IV BTL (OFIRMEV) (J0131 PER 10MG) As Ordered ONE (10:57)
[2022-04-23] MEDS ORDERED: KETOROLAC 60MG 2ML VIAL As Ordered ONE (11:03)
[2022-04-23] MEDS ORDERED: SUGAMMADEX SODIUM 500 MG/5 ML VIAL (BRIDION) As Ordered ONE (11:03)
[2022-04-23] MEDS ORDERED: HYDROMORPHONE HCL 0.5 MG/ 0.5 ML SYRINGE (J1170 PER 1) IV PRN (12:40)
[2022-04-23] MEDS ORDERED: ONDANSETRON 4MG 2ML VIAL IV PRN (12:40)
[2022-04-23] MEDS: fentaNYL 100 MCG/2 ML INJECTION IV PRN ×4 (12:42→12:57)
[2022-04-23] MEDS: oxyCODONE 5MG TAB PO PRN ×2 (13:02→13:47)
[2022-04-23 14:15] VITALS: BP 133/88
[2022-04-26] MEDS ORDERED: ALBUTEROL SULFATE 2.5 MG/0.5 ML INH NEB SOLN As Ordered ONE (18:58)
== END 2022-04-23 14:15 | disposition home or self-care (01) ==
LOC: M SDC 07:55
PROVIDERS: ATTEND Surgery
DX: K43.9 Ventral hernia without obstruction or gangrene (principal); Z88.5 Allergy status to narcotic agent
CPT/HCPCS: 49652; 81025; C1781; J0131; J0690; J1100; J1885; J2250; J2405; J3010; S2900

== ENCOUNTER → 2022-05-17 | Outpatient (REF) ==
[2022-05-17 13:28] LABS: RSV AMPLIFICATION NEGATIVE (NEGATIVE)
== END ==
LOC: M LABSMTC 10:37
PROVIDERS: ATTEND Family Medicine
DX: Z20.822 Contact with and (suspected) exposure to COVID-19 (principal); Z11.52 Encounter for screening for COVID-19

== ENCOUNTER → 2022-06-28 | Outpatient (REF) ==
[2022-06-28 13:36] LABS: RSV AMPLIFICATION NEGATIVE (NEGATIVE)
== END ==
LOC: M LABSMTC 10:58
PROVIDERS: ATTEND Family Medicine
DX: Z11.52 Encounter for screening for COVID-19 (principal)

== ENCOUNTER → 2022-08-17 | Outpatient (REF) | payer BC | LOC: M SFHCDERM 14:29 | PROVIDERS: ATTEND Nurse Practitioner Family | DX: D22.72 Melanocytic nevi of left lower limb, including hip (principal) ==

== ENCOUNTER → 2022-12-29 | Outpatient (CLI) | payer BC ==
[2022-12-29 10:28] LABS: HEMATOCRIT 43.1 % (36.0-47.0); HEMOGLOBIN 13.6 g/dl (12.0-15.5); MEAN CORPUSCULAR HEMOGLOBIN 29.5 pg (27.0-33.0); MEAN CORPUSCULAR HGB CONC 31.6 g/dl (32.0-36.5); MEAN CORPUSCULAR VOLUME 93.5 fl (80.0-96.0); PLATELET COUNT, AUTOMATED 243 10^3/uL (150-450); RED BLOOD COUNT 4.61 10^6/uL (4.00-5.40)
[2022-12-29 10:55] LABS: TOTAL 25(OH) VITAMIN D 15.1 NG/ML (20.0-100.0)
[2022-12-29 10:57] LABS: ALKALINE PHOSPHATASE 57 U/L (46-116); ALT/SGPT 24 U/L (7.0-40); AST/SGOT 11 U/L (<34); BILIRUBIN,TOTAL 0.5 MG/DL (0.3-1.2); BLOOD UREA NITROGEN 24 MG/DL (9-23); CALCIUM LEVEL 8.7 MG/DL (8.5-10.1); CARBON DIOXIDE LEVEL 24 MMOL/L (20-31); CHLORIDE LEVEL 107 MMOL/L (98-107); CHOLESTEROL LEVEL 156 MG/DL (<200); CHOLESTEROL RISK RATIO 2.38 (<5); CREATININE FOR GFR 1.03 MG/DL (0.55-1.30); GLOMERULAR FILTRATION RATE > 60.0 (>60); GLUCOSE, FASTING 96 MG/DL (60-100); HDL CHOLESTEROL 65.3 MG/DL (>40); LDL CHOLESTEROL 82.5 MG/DL (<100); NON-HDL-C 90.7 MG/DL; POTASSIUM SERUM 4.6 MMOL/L (3.5-5.1); SODIUM LEVEL 139 MMOL/L (136-145); TRIGLYCERIDES LEVEL 41 MG/DL (<150)
== END ==
LOC: M PLALAB 07:21
PROVIDERS: ATTEND Nurse Practitioner
DX: F90.9 Attention-deficit hyperactivity disorder, unspecified type (principal); F43.21 Adjustment disorder with depressed mood; E66.3 Overweight

== ENCOUNTER → 2022-12-31 | Outpatient (REF) | payer BC | LOC: M LAB REF 16:06 | PROVIDERS: ATTEND Physician Assistant | DX: J02.9 Acute pharyngitis, unspecified (principal) ==

== ENCOUNTER → 2023-06-13 | Outpatient (CLI) | payer BC ==
[2023-06-13 16:36] LABS: BASO % 0.5 % (0.0-1.0); EOS # 0.1 10^3/uL (0.0-0.5); EOS % 0.7 % (0.0-3.0); HEMOGLOBIN 13.6 g/dl (12.0-15.5); LYMPH # 2.3 10^3/uL (1.5-5.0); MEAN CORPUSCULAR HEMOGLOBIN 30.4 pg (27.0-33.0); MEAN CORPUSCULAR HGB CONC 33.2 g/dl (32.0-36.5); MEAN CORPUSCULAR VOLUME 91.7 fl (80.0-96.0); MONO # 0.6 10^3/uL (0.0-0.8); MONO % 7.2 % (2.0-8.0); NEUTROPHILS # 5.5 10^3/uL (1.5-8.5); NEUTROPHILS % 64.2 % (36.0-66.0); PLATELET COUNT, AUTOMATED 260 10^3/uL (150-450); RED BLOOD COUNT 4.47 10^6/uL (4.00-5.40); WHITE BLOOD COUNT 8.5 10^3/uL (4.0-10.0)
[2023-06-13 16:40] LABS: HEMOGLOBIN A1c 4.9 % (4.0-6.0)
[2023-06-13 16:52] LABS: ALBUMIN 4.1 G/DL (3.2-5.2); ALKALINE PHOSPHATASE 55 U/L (46-116); ALT/SGPT 20 U/L (7.0-40); AST/SGOT 13 U/L (<34); BILIRUBIN,TOTAL 0.5 MG/DL (0.3-1.2); BLOOD UREA NITROGEN 13 MG/DL (9-23); CALCIUM LEVEL 9.1 MG/DL (8.5-10.1); CARBON DIOXIDE LEVEL 26 MMOL/L (20-31); CHLORIDE LEVEL 107 MMOL/L (98-107); CHOLESTEROL LEVEL 157 MG/DL (<200); CHOLESTEROL RISK RATIO 2.28 (<5); CREATININE FOR GFR 0.71 MG/DL (0.55-1.30); FREE T4 1.11 NG/DL (0.89-1.76); GLOMERULAR FILTRATION RATE > 60.0 (>60); GLUCOSE, FASTING 84 MG/DL (60-100); HDL CHOLESTEROL 68.8 MG/DL (>40); NON-HDL-C 88.2 MG/DL; POTASSIUM SERUM 3.9 MMOL/L (3.5-5.1); RHEUMATOID FACTOR QUANT < 3.5 IU/ML (<14); SODIUM LEVEL 140 MMOL/L (136-145); THYROID STIMULATING HORMONE 0.769 uIU/ML (0.55-4.78); TOTAL 25(OH) VITAMIN D 15.7 NG/ML (20.0-100.0); TOTAL PROTEIN 7.1 G/DL (5.7-8.2); TRIGLYCERIDES LEVEL 51 MG/DL (<150)
== END ==
LOC: M PLALAB 12:42
PROVIDERS: ATTEND Student in an Organized Health Care Education/Training Program
DX: M13.0 Polyarthritis, unspecified (principal); E55.9 Vitamin D deficiency, unspecified; R00.2 Palpitations; Z76.89 Persons encountering health services in other specified circumstances

== ENCOUNTER → 2023-06-14 | Outpatient (REF) | payer BC | LOC: M SFHCPLAZ 12:44 | PROVIDERS: ATTEND Student in an Organized Health Care Education/Training Program | DX: Z76.89 Persons encountering health services in other specified circumstances (principal); R00.2 Palpitations; M13.0 Polyarthritis, unspecified; E55.9 Vitamin D deficiency, unspecified ==

== ENCOUNTER → 2023-08-16 | Outpatient (CLI) | payer BC | LOC: M CARPUL 10:08 | PROVIDERS: ATTEND Student in an Organized Health Care Education/Training Program | DX: Z13.6 Encounter for screening for cardiovascular disorders (principal); Z82.41 Family history of sudden cardiac death; I34.0 Nonrheumatic mitral (valve) insufficiency ==

== ENCOUNTER → 2023-09-28 | Outpatient (CLI) | payer BC | LOC: M WHC 12:13 | PROVIDERS: ATTEND Advanced Practice Midwife | DX: R10.2 Pelvic and perineal pain (principal); N94.10 Unspecified dyspareunia; Z30.431 Encounter for routine checking of intrauterine contraceptive device ==

== ENCOUNTER → 2023-09-28 | Outpatient (CLI) | payer BC ==
[2023-09-28 16:38] LABS: BASO # 0.1 10^3/uL (0.0-0.2); BASO % 0.6 % (0.0-1.0); EOS # 0.1 10^3/uL (0.0-0.5); EOS % 0.6 % (0.0-3.0); HEMOGLOBIN 13.5 g/dl (12.0-15.5); LYMPH # 2.6 10^3/uL (1.5-5.0); LYMPH % 24.8 % (24.0-44.0); MEAN CORPUSCULAR HEMOGLOBIN 30.2 pg (27.0-33.0); MEAN CORPUSCULAR HGB CONC 32.9 g/dl (32.0-36.5); MEAN CORPUSCULAR VOLUME 91.7 fl (80.0-96.0); MONO # 0.8 10^3/uL (0.0-0.8); MONO % 7.8 % (2.0-8.0); NEUTROPHILS # 6.8 10^3/uL (1.5-8.5); NEUTROPHILS % 65.9 % (36.0-66.0); PLATELET COUNT, AUTOMATED 278 10^3/uL (150-450); RED BLOOD COUNT 4.47 10^6/uL (4.00-5.40); WHITE BLOOD COUNT 10.3 10^3/uL (4.0-10.0)
[2023-09-28 16:53] LABS: ERYTHROCYTE SEDIMENTATION RATE 18 mm/hr (0-20)
[2023-09-28 17:02] LABS: C REACTIVE PROTEIN QUANTITATIV < 0.40 MG/DL (<1.0)
[2023-09-28 17:04] LABS: ALBUMIN 4.2 G/DL (3.2-5.2); ALKALINE PHOSPHATASE 51 U/L (46-116); ALT/SGPT 25 U/L (7.0-40); AST/SGOT 14 U/L (<34); BILIRUBIN,TOTAL 0.4 MG/DL (0.3-1.2); BLOOD UREA NITROGEN 18 MG/DL (9-23); CALCIUM LEVEL 8.6 MG/DL (8.5-10.1); CARBON DIOXIDE LEVEL 25 MMOL/L (20-31); CHLORIDE LEVEL 104 MMOL/L (98-107); CREATININE FOR GFR 0.73 MG/DL (0.55-1.30); GLOMERULAR FILTRATION RATE > 60.0 (>60); GLUCOSE, FASTING 86 MG/DL (60-100); RHEUMATOID FACTOR QUANT < 3.5 IU/ML (<14); SODIUM LEVEL 134 MMOL/L (136-145); TOTAL PROTEIN 7.1 G/DL (5.7-8.2)
[2023-09-28 17:06] LABS: TOTAL 25(OH) VITAMIN D 26.1 NG/ML (20.0-100.0)
== END ==
LOC: M PLALAB 12:18
PROVIDERS: ATTEND Student in an Organized Health Care Education/Training Program
DX: E55.9 Vitamin D deficiency, unspecified (principal); R21 Rash and other nonspecific skin eruption

== ENCOUNTER → 2023-10-28 | Outpatient (REF) | payer BC ==
[2023-10-28 14:09] LABS: Trichomonas vaginalis (AMP) NOT DETECTED (NEGATIVE)
[2023-10-28 14:34] LABS: GC DNA AMPLIFICATION NEGATIVE (NEGATIVE)
== END ==
LOC: M SFHCWAGY 12:24
PROVIDERS: ATTEND Advanced Practice Midwife
DX: R10.2 Pelvic and perineal pain (principal)

== ENCOUNTER → 2024-03-12 | Outpatient (REF) | LOC: M EMP 08:21 | PROVIDERS: ATTEND Family Medicine | DX: Z11.52 Encounter for screening for COVID-19 (principal) ==

== ENCOUNTER → 2024-05-18 | Outpatient (REF) | payer BC ==
[2024-05-18 19:41] LABS: BASO # 0.1 10^3/uL (0.0-0.2); BASO % 0.5 % (0.0-1.0); EOS % 0.4 % (0.0-3.0); HEMATOCRIT 42.5 % (36.0-47.0); HEMOGLOBIN 14.1 g/dl (12.0-15.5); LYMPH # 2.3 10^3/uL (1.5-5.0); LYMPH % 23.4 % (24.0-44.0); MEAN CORPUSCULAR HEMOGLOBIN 30.5 pg (27.0-33.0); MEAN CORPUSCULAR HGB CONC 33.2 g/dl (32.0-36.5); MONO # 0.8 10^3/uL (0.0-0.8); MONO % 8.1 % (2.0-8.0); NEUTROPHILS # 6.6 10^3/uL (1.5-8.5); NEUTROPHILS % 67.4 % (36.0-66.0); PLATELET COUNT, AUTOMATED 292 10^3/uL (150-450); RED BLOOD COUNT 4.62 10^6/uL (4.00-5.40); WHITE BLOOD COUNT 9.7 10^3/uL (4.0-10.0)
[2024-05-18 20:04] LABS: ALKALINE PHOSPHATASE 66 U/L (35-104); ALT/SGPT 20 U/L (7.0-40); AST/SGOT 10 U/L (<34); BILIRUBIN,TOTAL 0.5 MG/DL (0.3-1.2); BLOOD UREA NITROGEN 20 MG/DL (9-23); CALCIUM LEVEL 9.8 MG/DL (8.5-10.1); CARBON DIOXIDE LEVEL 25 MMOL/L (20-31); CHLORIDE LEVEL 109 MMOL/L (98-107); CHOLESTEROL LEVEL 175 MG/DL (<200); CHOLESTEROL RISK RATIO 2.36 (<5); CREATININE FOR GFR 0.89 MG/DL (0.55-1.30); GLOMERULAR FILTRATION RATE > 60.0 (>60); GLUCOSE, FASTING 74 MG/DL (60-100); LDL CHOLESTEROL 84.4 MG/DL (<100); POTASSIUM SERUM 4.4 MMOL/L (3.5-5.1); SODIUM LEVEL 141 MMOL/L (136-145); TOTAL PROTEIN 7.4 G/DL (5.7-8.2); TRIGLYCERIDES LEVEL 83 MG/DL (<150)
[2024-05-18 20:05] LABS: FREE T4 1.44 NG/DL (0.89-1.76)
== END ==
LOC: M LABDRAWP 17:26
PROVIDERS: ATTEND Student in an Organized Health Care Education/Training Program
DX: Z51.81 Encounter for therapeutic drug level monitoring (principal); E55.9 Vitamin D deficiency, unspecified; F41.9 Anxiety disorder, unspecified

== ENCOUNTER → 2024-08-22 | Outpatient (CLI) | payer OTHER | LOC: M PLALAB 16:12 | PROVIDERS: ATTEND Nurse Practitioner Family | DX: L68.0 Hirsutism (principal); Z68.41 Body mass index [BMI] 40.0-44.9, adult ==

== ENCOUNTER → 2025-02-06 | Outpatient (REF) | payer OTHER ==
[2025-02-08 14:53] LABS: HPV APTIMA Not Detected (Not Detected)
== END ==
LOC: M PLALAB 08:06
PROVIDERS: ATTEND Advanced Practice Midwife
DX: Z12.4 Encounter for screening for malignant neoplasm of cervix (principal)